=== PATIENT | female | born 1985 | race Caucasian/White ===

== ENCOUNTER 2020-05-21 14:39 | Emergency (ER) | payer OTHER, SELFPAY ==
--- NOTE | 2020-05-21 14:44 | ED.URI ---
HPI - URI/Sore Throat General Stated Complaint: SORE THROAT/WHITE SPOT UNDER TONGUE Time Seen by Provider: 05/21/20 14:44 Source: patient and RN notes reviewed Related Data Home Medications Medication Instructions Recorded Confirmed docosahexaenoic acid 200 mg capsule mg PO DAILY cap 12/23/19 Allergies Allergy/AdvReac Type Severity Reaction Status Date / Time No Known Allergies Allergy Verified 12/23/19 08:51 Review of Systems Review of Systems: Narrative: CONSTITUTIONAL: Denies fever, chills, or sweats. EYES: Denies visual changes, redness, or discharge. ENT: Reports of a sore throat and white spot CARDIOVASCULAR: Denies chest pain, palpitations, or edema. RESPIRATORY: Denies cough or dyspnea. GASTROINTESTINAL: Denies abdominal pain, nausea, vomiting, or diarrhea. GENITOURINARY: Denies dysuria or hematuria. SKIN: Denies rash or itching. MUSCULOSKELETAL: Denies back pain, joint pain, or myalgia. NEUROLOGIC: Denies headache, numbness, or weakness. All other systems reviewed are negative, except as documented in HPI. [facility] Past Medical History Medical History (Updated 12/23/19 @ 09:24 by Betty Martinez MD) Encounter for supervision of normal first in third trimester Endometriosis Migraines endometritis UTI (urinary tract infection) Vaginal delivery x 2 Surgical History Surgical History H/O laparoscopy History of tonsillectomy Family History Family History Mother Coronary stent patent Hypertension Anemia Psoriasis Sibling Gestational diabetes Hypertension Hypothyroidism Psoriasis Grandparent Throat cancer Psoriasis Father Chronic obstructive pulmonary disease Social History Social History Smoking status: Never smoker Alcohol intake: never Substance use: never Spiritual care concerns: No Agree to blood products: Yes Comments At the time of my signature, I reviewed and agree with the nursing past medical, surgical, social, and family history. There is no relevant family history pertinent to the patient complaint. Exam Narrative: Exam Narrative: GENERAL: This is a well-nourished, well-developed patient, in no apparent distress. HEAD: normocephalic, atraumatic. EYES: PERRL. Sclera clear/white. Vision is grossly intact. EARS: External ears normal, auditory canals clear and without drainage, TMs normal without perforation. Hearing grossly intact. NOSE: External nose normal with no obvious nasal discharge, nares without redness, no rhinorrhea. THROAT: Mucous membranes moist, posterior pharynx clear. NECK: Neck supple, non-tender without lymphadenopathy, masses or thyromegaly. CARDIOVASCULAR: Regular rate and rhythm without murmurs, gallops, or rubs. RESPIRATORY: Clear to auscultation. Breath sounds equal bilaterally. No wheezes, rales, or rhonchi. GASTROINTESTINAL: Abdomen soft, non-tender, nondistended. Bowel sounds are active. No hepato-splenomegaly, or palpable masses. No guarding. SKIN: warm, intact with no suspicious lesions or rash, good texture and turgor. NEURO: awake, alert, and oriented to person, place and time. There were no obvious focal neurologic abnormalities. EXTREMITIES: No clubbing, cyanosis, or edema. No joint tenderness, effusion, or edema noted. No calf tenderness. Negative Homans sign bilaterally. BACK: Nontender without deformity or crepitance. No flank tenderness. MDM - URI/Sore Throat MDM Narrative Medical decision making narrative: Reviewed lab results with the patient. She is aware that strep swab was Differential Diagnosis Differential diagnosis: Likely upper respiratory infection, croup, otitis media, sinusitis, viral infection, bronchitis, influenza and pharyngitis Lab Data Attestation: I reviewed the patient's lab results. Critical Care Time
[2020-05-21 14:46] VITALS: BP 111/73; PULSE 80; RESP 20; TEMP 36.6; O2SAT 100
--- NOTE | 2020-05-21 14:55 | ED.DENTAL ---
HPI - Dental/Oral General Chief complaint: Dental/Oral Stated complaint: SORE THROAT/WHITE SPOT UNDER TONGUE Time Seen by Provider: 05/21/20 14:44 Source: patient and RN notes reviewed History of Present Illness HPI Narrative: Patient is a 35-year-old female who presents the urgent care with complaints of a white spot to the back of her tongue . Patient states that she noticed it a couple days ago and her thought it appeared to be getting larger. Patient states that she did recently have Covid and was out of quarantine on [place]. Patient states that she currently has no symptoms with the exception of just a mild nasal congestion. Patient has not done anything for the sore in her mouth. No other acute complaints. No acute distress noted. Patient aware of the plan of care. Some parts of this dictation were generated by voice recognition software and may contain typographical and/or grammatical inaccuracies. Related Data Home Medications Medication Instructions Recorded Confirmed [id number] [id number] [id number] pkg PO 05/21/20 [Daily ] Allergies Allergy/AdvReac Type Severity Reaction Status Date / Time No Known Allergies Allergy Verified 12/23/19 08:51 Review of Systems Review of Systems: Narrative: CONSTITUTIONAL: Denies fever, chills, or sweats. EYES: Denies visual changes, redness, or discharge. ENT: Denies rhinorrhea, congestion, sore throat, or otalgia. Reports of a sore under the tongue to the back of the left side CARDIOVASCULAR: Denies chest pain, palpitations, or edema. RESPIRATORY: Denies cough or dyspnea. GASTROINTESTINAL: Denies abdominal pain, nausea, vomiting, or diarrhea. GENITOURINARY: Denies dysuria or hematuria. SKIN: Denies rash or itching. MUSCULOSKELETAL: Denies back pain, joint pain, or myalgia. NEUROLOGIC: Denies headache, numbness, or weakness. All other systems reviewed are negative, except as documented in HPI. [facility] Past Medical History Medical History (Updated 05/21/20 @ 14:58 by SHUKRI Bermeo) Encounter for supervision of normal first in third trimester Endometriosis Migraines endometritis UTI (urinary tract infection) Vaginal delivery x 2 Surgical History Surgical History H/O laparoscopy History of tonsillectomy Family History Family History Mother Coronary stent patent Hypertension Anemia Psoriasis Sibling Gestational diabetes Hypertension Hypothyroidism Psoriasis Grandparent Throat cancer Psoriasis Father Chronic obstructive pulmonary disease Social History Social History Smoking status: Never smoker Alcohol intake: never Substance use: never Spiritual care concerns: No Agree to blood products: Yes Comments At the time of my signature, I reviewed and agree with the nursing past medical, surgical, social, and family history. There is no relevant family history pertinent to the patient complaint. Exam Narrative: Exam Narrative: GENERAL: This is a well-nourished, well-developed patient, in no apparent distress. HEAD: normocephalic, atraumatic. EYES: PERRL. Sclera clear/white. Vision is grossly intact. EARS: External ears normal NOSE: External nose normal with no obvious nasal discharge, nares without redness, no rhinorrhea. THROAT: Mucous membranes moist, posterior pharynx clear. Pinpoint nearly healed canker sore under the tongue to the posterior left NECK: Neck supple SKIN: warm, intact with no suspicious lesions or rash, good texture and turgor. NEURO: awake, alert, and oriented to person, place and time. There were no obvious focal neurologic abnormalities. EXTREMITIES: No clubbing, cyanosis, or edema. Course Vital Signs Vital signs: Vital Signs Temperature 97.8 F 05/21/20 14:46 Pulse Rate
== END 2020-05-21 15:03 | disposition home or self-care (01) ==
PROVIDERS: Emergency Provider Nurse Practitioner Family
DX: K12.0 Recurrent oral aphthae (principal); N80.9 Endometriosis, unspecified
CPT/HCPCS: 99211; G0463

== ENCOUNTER 2020-07-29 15:50 | Outpatient (NON) | payer OTHER, SELFPAY ==
[2020-07-29 16:05] LABS: Hematocrit 42.9 % (35.0-49.0); Hemoglobin 13.9 g/dL (12.0-15.0); Mean Corpuscular HGB Conc 32.4 g/dL (32.0-36.0); Mean Corpuscular Hemoglobin 29.3 pg (27.0-31.0); Mean Corpuscular Volume 90.3 fL (78.0-102.0); Platelet Count Result 274 K/mm3 (150-420); Red Blood Count 4.75 M/mm3 (4.20-5.40); Red Cell Distribution Width 12.5 % (11.6-14.4); White Blood Count 6.7 K/mm3 (4.8-10.8)
[2020-07-29 16:45] LABS: Alanine Aminotransferase 20 U/L (14-59); Albumin Level 4.1 g/dL (3.4-5.0); Alkaline Phosphatase 66 U/L (46-116); Anion Gap 8 mmol/L (8-16); Aspartate Amino Transferase 13 U/L (15-37); Bilirubin,Total 0.3 mg/dL (0.00-1.00); Blood Urea Nitrogen 11 mg/dL (7-18); Calcium 9.1 mg/dL (8.5-10.1); Carbon Dioxide 30 mmol/L (21-32); Chloride 103 mmol/L (98-108); Cholesterol 169 mg/dL (0-200); Estimated Glomerular Filt Rate > 60; Glucose 85 mg/dL (70-99); HDL Direct 76 mg/dL (40-60); LDL Cholesterol Calculated 84 mg/dL (<130); Osmolality Calculated 290 mOsm/kg (285-295); Potassium 3.7 mmol/L (3.5-5.1); Sodium 141 mmol/L (136-145); Total Protein 7.3 g/dL (6.4-8.2); Triglycerides 43 mg/dL (0-150)
== END 2020-07-29 15:51 ==
PROVIDERS: PCP Family Medicine; Visit Provider Family Medicine
DX: L65.9 Nonscarring hair loss, unspecified (principal)
CPT/HCPCS: 36415; 80053; 80061; 84443; 85027

== ENCOUNTER 2021-05-01 09:06 | Outpatient (CLI) | payer OTHER, SELFPAY ==
--- NOTE | ~2021-05-01 | XR_ITS ---
EXAMINATION: XR foot LT standing 2V EXAM DATE: 05/01/2021 09:37 INDICATION: Chronic pain in left foot . TECHNIQUE: Frontal and lateral projections of the left foot standing. Contralateral foot same date FINDINGS: There are no bony erosions identified. There are no acute left foot fractures or dislocati ons identified. There is no subcutaneous gas. The soft tissue is unremarkable. There are no radio paque foreign bodies. IMPRESSION: 1. Unremarkable XR foot LT standing 2V exam. Reviewed, dictated and finalized at location B. ER REPAIRMAN
--- NOTE | ~2021-05-01 | XR_ITS ---
EXAMINATION: XR foot RT standing 2V EXAM DATE: 05/01/2021 09:37 INDICATION: Chronic pain in right foot. TECHNIQUE: Frontal and lateral projections of the right foot standing. Correlation is made to contra lateral foot same date. FINDINGS: There are no bony erosions identified. There are no acute fractures or dislocations identi fied. There is no subcutaneous gas. The soft tissue is unremarkable. There are no radiopaque fore ign bodies. IMPRESSION: 1. Unremarkable XR foot RT standing 2V exam. Reviewed, dictated and finalized at location B. TRUCTION CONSULTANT
== END 2021-05-01 09:07 | disposition home or self-care (01) ==
LOC: CHSIMG 09:09
PROVIDERS: PCP Family Medicine; Visit Provider Family Medicine
DX: M79.671 Pain in right foot (principal); M79.672 Pain in left foot
CPT/HCPCS: 73620

== ENCOUNTER 2021-05-30 07:46 | Outpatient (CLI) | payer OTHER, SELFPAY ==
[2021-05-30 09:46] LABS: SARS-CoV-2 RNA PCR Positive (Negative)
== END 2021-05-30 07:47 | disposition home or self-care (01) ==
LOC: CHSLAB 07:49
PROVIDERS: PCP Family Medicine; Visit Provider Nurse Practitioner Family
DX: U07.1 COVID-19 (principal)
CPT/HCPCS: C9803; U0003; U0005

== ENCOUNTER 2021-09-26 11:09 | Outpatient (CLI) | payer OTHER, SELFPAY ==
[2021-09-26 12:24] LABS: SARS-CoV-2 RNA PCR Negative (Negative)
== END 2021-09-26 11:10 | disposition home or self-care (01) ==
LOC: CHSLAB 11:10
PROVIDERS: PCP Family Medicine; Visit Provider Family Medicine
DX: Z20.822 Contact with and (suspected) exposure to COVID-19 (principal)
CPT/HCPCS: C9803; U0003; U0005

== ENCOUNTER 2023-04-20 08:00 | Outpatient (CLI) | payer OTHER, SELFPAY ==
[2023-04-20 08:20] LABS: Hematocrit 39.4 % (35.0-49.0); Hemoglobin 12.9 g/dL (12.0-15.0); Mean Corpuscular HGB Conc 32.7 g/dL (32.0-36.0); Mean Corpuscular Volume 91.6 fL (78.0-102.0); Mean Platelet Volume 11.6 fl (9.2-11.8); Platelet Count Result 238 K/mm3 (150-420); Red Cell Distribution Width 12.5 % (11.6-14.4); White Blood Count 5.4 K/mm3 (4.8-10.8)
== END 2023-04-20 08:01 | disposition home or self-care (01) ==
LOC: CHSLAB 08:00
PROVIDERS: PCP Family Medicine; Visit Provider Obstetrics & Gynecology
DX: N92.0 Excessive and frequent menstruation with regular cycle (principal)
CPT/HCPCS: 36415; 85027

== ENCOUNTER 2023-04-22 14:07 | Outpatient (CLI) | payer OTHER, SELFPAY ==
--- NOTE | ~2023-04-22 | US_ITS ---
EXAMINATION: US pelvic complete w TV DATE: 04/22/2023 14:49 INDICATION: Excessive and frequent menstruation Comparison:Ultrasound dated 11/11/2018 TECHNIQUE: Multiple transabdominal and endovaginal sonographic images of the pelvis performed. FINDINGS: The uterus measures 8.3 x 5.3 x 3.9 cm. There is a small uterine fibroid measuring 1 cm. Th e endometrial complex measures 1.8 cm. The right ovary measures 2.3 x 2.1 x 1.8 cm and the left ovary measures 2.4 x 1.7 x 1.6 cm. There is a 1.5 cm left ovarian cyst. There are small follicles in each ovary. Normal doppler signal in both ov jacobo. There is free fluid in the pelvis. There are no abnormal masses seen on either side. IMPRESSION: 1. Thickened endometrium measuring 1.8 cm. 2: Left ovarian cyst measuring 1.5 cm. Reviewed, dictated and finalized at location B. MING MACHINE OPERATOR
== END 2023-04-22 14:08 | disposition home or self-care (01) ==
LOC: CHSIMG 14:09
PROVIDERS: PCP Family Medicine; Visit Provider Obstetrics & Gynecology
DX: N85.2 Hypertrophy of uterus (principal); N92.0 Excessive and frequent menstruation with regular cycle; N83.202 Unspecified ovarian cyst, left side
CPT/HCPCS: 76830; 76856

== ENCOUNTER 2024-01-23 10:30 | Outpatient (CLI) | payer OTHER, SELFPAY ==
--- NOTE | ~2024-01-23 | US_ITS ---
EXAMINATION: US abdomen limited DATE: 01/23/2024 10:50 INDICATION: Cholelithiasis TECHNIQUE: Multiple grayscale and Doppler ultrasound images of the abdomen were obtained. COMPARISON: None FINDINGS: Pancreas is normal. Visualized proximal inferior vena cava is normal. Liver has normal echogenicity a nd contour, with a smooth surface. No liver lesion identified. No intrahepatic biliary duct dilation suspected. Portal venous flow was seen in the hepatopetal, normal direction and has normal Doppler wa veform. There are a few tiny <2 mm nonshadowing echogenic nodules along the dependent and nondependen t gallbladder wall consistent with tiny cholesterol polyps. There is no shadowing cholelithiasis. Th e common bile duct measures 4 mm, which is normal. Sonographic Grover sign was reported as negative b y the consumer educator. IMPRESSION: 1. A few tiny <2 mm non shadowing gallbladder polyps along the dependent and nondependent gallbladder wall. No evident shadowing cholelithiasis. Reviewed, dictated and finalized at location A. IMPRESSION: 1. A few tiny <2 mm non shadowing gallbladder polyps along the dependent and no ndependent gallbladder wall. No evident shadowing cholelithiasis.
== END 2024-01-23 10:31 | disposition home or self-care (01) ==
LOC: CHSIMG 10:32
PROVIDERS: PCP Family Medicine; Visit Provider Family Medicine
DX: K80.50 Calculus of bile duct without cholangitis or cholecystitis without obstruction (principal)
CPT/HCPCS: 76705

== ENCOUNTER 2024-06-26 09:04 | Outpatient (CLI) | payer OTHER, SELFPAY ==
--- OUTSIDE RECORDS SUMMARY | 2024-06-26 09:28 | XMS_ITS | Clinical Summary ---
Author Organization [facility] - [birth year]22 Address [address] [facility] 3rd [place] [address] Phone Care Team Providers Care Dining Room Host Name Role Phone Aldair Hines MD Primary Care Provider [phone] Social History Tobacco Use Types Packs/Day Years Used Date Smoking Tobacco: Never Assessed Comments Unknown Sex and Gender Information Value Date Recorded Sex Assigned at Not on file Legal Sex Female 8:37 AM CDT Gender Identity Not on file Sexual Orientation Not on file Plan of Treatment Health Maintenance Due Date Last Done Comments HEPATITIS B VACCINES (1 of 3 - 19+ 3-dose series) 2006 CERVICAL CANCER SCREENING 2017 INFLUENZA VACCINE (#1) 2023 DTAP/TDAP/TD VACCINES (2 - T d or Tdap) 06/07/2026 06/07/2016 HPV VACCINES Aged Out No longer eligi ble based on patient's age to complete this topic PNEUMOCOCCAL VACCINE 0-64 YEARS Aged Out No longer eligible based on patient's age to complete this topic Care Teams Dining Room Host Relationship Specialty Start Date End Date Aldair Hines MD [address] [place] [address] [phone] PCP - General Family Practice 12/19/15
--- OUTSIDE RECORDS SUMMARY | 2024-06-26 09:30 | XMS_ITS | Clinical Summary ---
Author Organization [facility] Address [address] [place] [address] Care Team Providers Care Divinity Professor Name Role Phone Aldair Hines MD Primary Care Provider [phone] Source Comments [facility],non-owned Affiliates and Associated Physician Practices is amultiple site organization consisting of ambulatory clinics and hospital sitesin [place], [place], [place] and [place]. This disclosure is being madepursuant to the Care Everywhere program and may not contain all information available regarding this patient. Last updated 18.[facility] Allergies Active Allergy Reactions Criticality Noted Date Comments Dairy Enzyme Formula Rhinitis,GI Discomfort Medications * Be aware that medications may not be up to date on this document. Alwaysverify current medications with the patient. Medication Sig Dispensed Refills Start Date End Date Status multivitamin daily tablet Take 1 (one) tablet by mouth daily with food Active sodium fluoride (Luride) 1.1 (0.5 F) MG/ML solution Take 1 mL by mouth once daily Active polyethylene glycol 3350 (Miralax) 17 GM/SCOOP powder Take 17 (seventeen) g by mouth once daily Active Tenapanor HCl (Ibsrela) 50 MG TABSIndications:Co nstipation associated with Irritable Bowel Syndrome Take 50 mg by mouth 2 times daily with morning and evening meal Reasons: Constipation caused by Irritable Bowel Syndrome 60 tablet 11 02/25/2024 Active Additional Information Patient not taking.Reported on 05/06/2024 Active Problems No known active problems Encounters Date Type Department Care Team Description 06/02/2024 Travel 05/06/2024 10:00 AM CARPENTER RAILCAR Office Visit [facility] - [address] [place] [address] Pranav Eid APRN-JACKLYN Irritable bowel syndrome with constipation (Primary Dx); Raynaud's disease without gangrene; Fever, unspecified fever cause; Gas bloat syndrome; Arthralgia of both hands from Last 3 Months Immunizations Name Administration Dates Next Due TDAP (7yrs+) 06/07/2016 Family History Medical History Relation Name Comments COPD - Chronic Obstructive Pulmonary Disease Father Other - Cardiac Mother Relation Name Status Comments Father Mother Social History Tobacco Use Types Packs/Day Years Used Date Smoking Tobacco: Never Smokeless Tobacco: Never Alcohol Use Standard Drinks/Week Comments Not Currently 0 (1 standard drink = 0.6 oz pur e alcohol) Sex and Gender Information Value Date Recorded Sex Assigned at Not on file Gender Identity Not on file Sexual Orientation Not on file Last Filed Vital Signs Vital Sign Reading Time Taken Comments Blood Pressure 121/72 05/06/2024 10:00 AM CARPENTER RAILCAR Pulse 70 02/05/2024 12:37 PM CDT Temperature 36.7 C (98.1 F) 02/05/2024 12:37 PM CDT Respiratory Rate 16 09/30/2017 9:41 AM CDT Oxygen Saturation 99% 02/05/2024 12: 37 PM CDT Inhaled Oxygen Concentration - - Weight 51.6 kg (113 lb 12.8 oz) 024 10:00 AM CARPENTER RAILCAR Height 151.1 cm (4' 11.5 ) 05/06/2024 1 0:00 AM CARPENTER RAILCAR Body Mass Index 22.6 05/06/2024 10:00 AM CARPENTER RAILCAR Plan of Treatment Upcoming Encounters Date Type Department Care Team (Late st Contact Info) Description 09/23/2024 1:30 PM CDT Office Visit [facility] - Rheumatology [address] [place] [address], [facility] [place] [address] Marek Leija MD [address] [place] [address] [place] [address] 01/06/2025 10:00 AM CDT Office Visit [facility] - [address] [place] [address] Pranav Eid, TRIM MACHINE ADJUSTER-ROLLER SHOP UTILITY WORKER [address] [facility] [address] [place] [address] Health Maintenance Due Date Last Done Comments PAP SMEAR 1987 HIV SCREENING 2002 HEPATITIS C SCREENING 05/08/2005 HEPATITIS B VACCINE (1 of 3 - 19+ 3-dose series) 2006 COVID-19 VACCINE (1 - 2023-2 5 season) 2024 INFLUENZA VACCINE (#1) 2024 DEPRESSION SCREENING 05/20/2024 DTAP/TDAP/TD VACCINES (2 - T d or Tdap) 06/07/2026 06/07/2016 ZOSTER VACCINE (1 of 2) 2037 HIB VACCINE Aged Out No longer eligi ble based on patient's age to complete this topic HPV VACCINE Aged Out No longer eligi ble based on patient's age to complete this topic MENINGOCOCCAL (Group B) VACCINE Aged Out No longer eligible based on patient's age to complete this topic MENINGOCOCCAL VACCINE Aged Out No mauricio carlita eligible based on patient's age to complete this topic PNEUMOCOCCAL VACCINE Aged Out No long er eligible based on patient's age to complete this topic Care Teams Divinity Professor Relationship Specialty Start Date End Date Aldair Hines MD [address] [place] [id number] PCP - General Family Medicine 06/07/16
--- OUTSIDE RECORDS SUMMARY | 2024-06-26 09:30 | XMS_ITS | Clinical Summary ---
Author Organization [facility] Address [facility] [place] [address] Care Team Providers Care Capacitor Assembler Name Role Phone None, Provider MD Primary Care Provider Unavaila ble Allergies No known active allergies Medications No known medications Social History Tobacco Use Types Packs/Day Years Used Date Smoking Tobacco: Never Passive Smoke Exposure: Never Smokeless Tobacco: Never Tobacco Cessation:Counseling Given: Not Answered Comments Unknown Sex and Gender Information Value Date Recorded Sex Assigned at Not on file Legal Sex Female 7:38 PM CDT Gender Identity Not on file Sexual Orientation Not on file Last Filed Vital Signs Vital Sign Reading Time Taken Comments Blood Pressure 140/66 01/19/2024 1:56 PM CDT Pulse 70 01/19/2024 1:56 PM CDT Temperature 36.7 C (98 F) 01/19/2024 1:56 PM CDT Respiratory Rate 20 01/19/2024 1:56 PM CDT Oxygen Saturation 99% 01/19/2024 1:56 PM CDT Inhaled Oxygen Concentration - - Weight 56.7 kg (125 lb) 01/19/2024 11:06 AM CDT Height 149.9 cm (4' 11 ) 01/19/2024 11:06 AM CDT Body Mass Index 25.25 01/19/2024 11:06 AM CDT Plan of Treatment Health Maintenance Due Date Last Done Comments Cervical Cancer Screening Pa p Smear (Age 30 to 64) Every 3 Years 1987 Annual Physical 1990 Hepatitis C 2005 Hepatitis B Vaccines (1 of 3 - 19+ 3-dose series) 2006 Cervical Cancer Screening Pa p with HPV Testing (Age 30 to 64) Every 5 Years 2017 Cervical Cancer Screening wi th HPV 2017 COVID-19 Vaccine (3 - 2023-2 5 season) 2024 10/27/2020, 10/06/2020 Influenza Adult (#1) 2024 DTaP, Tdap and Td Vaccines ( 3 - Td or Tdap) 06/01/2029 06/01/2019, 06/07/2016 HPV Vaccines Aged Out No longer eligi ble based on patient's age to complete this topic Meningococcal B Vaccine Aged Out No l onger eligible based on patient's age to complete this topic Meningococcal Vaccine Aged Out No mauricio carlita eligible based on patient's age to complete this topic Pneumococcal Vaccine: Pediatrics (0 to 5 Years) and At-Risk Patients (6 to 64 Years) Aged Out No longer eligible b ased on patient's age to complete this topic RSV Immunizations Under 20 Months Aged Out No longer eligible b ased on patient's age to complete this topic Care Teams Capacitor Assembler Relationship Specialty Start Date End Date None, Provider, MD PCP - General UNKNOWN PHYSICIAN SPECIALTY 01/19/24
--- OUTSIDE RECORDS SUMMARY | 2024-06-26 09:30 | XMS_ITS | Referral Summary ---
Author Organization [facility] Address [address] [place] [address] Care Team Providers Care Tyre Builder Name Role Phone Aldair Hines MD Primary Care Provider [phone] Source Comments [facility]ates and Associated Physician Practices is amultiple site organization consisting of ambulatory clinics and hospital sitesin [place], [place], [place] and [place]. This disclosure is being madepursuant to the Care Everywhere program and may not contain all information available regarding this patient. Last updated 18.[facility] Encounters Date Type Department Care Team Description 06/02/2024 Travel 05/06/2024 10:00 AM NURSE PLASTICS Office Visit [facility] - GI [address] [address] Pranav Eid, LILLY-DIRECTOR OF HOTEL OPERATIONS Irritable bowel syndrome with constipation (Primary Dx); Raynaud's disease without gangrene; Fever, unspecified fever cause; Gas bloat syndrome; Arthralgia of both hands from Last 3 Months Allergies Active Allergy Reactions Criticality Noted Date [...] 05/06/2024 Active Problems No known active problems Immunizations Name Administration Dates Next Due TDAP (7yrs+) 06/07/2016 Social History Tobacco Use Types Packs/Day Years [...] Comments Blood Pressure 121/72 05/06/2024 10:00 AM NURSE PLASTICS Pulse 70 02/05/2024 12:37 PM CDT Temperature 36.7 C (98.1 F) 02/05/2024 12:37 PM CDT Respiratory Rate 16 09/30/2017 9:41 AM CDT Oxygen Saturation 99% 02/05/2024 12: 37 PM CDT Inhaled Oxygen Concentration - - Weight 51.6 kg (113 lb 12.8 oz) 024 10:00 AM NURSE PLASTICS Height 151.1 cm (4' 11.5 ) 05/06/2024 1 0:00 AM NURSE PLASTICS Body Mass Index 22.6 05/06/2024 10:00 AM NURSE PLASTICS Plan of Treatment Upcoming Encounters Date Type Department Care Team (Late st Contact Info) Description 09/23/2024 1:30 PM CDT Office Visit [facility] - Rheumatology [address] [place] [address], [place] [phone] Marek Lieja MD [address] [place] [address] [place] [phone] 01/06/2025 10:00 AM CDT Office Visit [facility] - [address] [place] [address] Pranav Eid APRN-DIRECTOR OF HOTEL OPERATIONS [address] [facility] [address] [place] [address] Care Teams Tyre Builder Relationship Specialty Start Date End Date Aldair Hines MD [facility] [facility] [place] [address] PCP - General Family Medicine 06/07/16
--- OUTSIDE RECORDS SUMMARY | 2024-06-26 09:30 | XMS_ITS | Patient Health Summary ---
Author Organization [facility] Address [address] [place] [address] Care Team Providers Care Cabinet Professional Name Role Phone Aldair Hines MD Primary Care Provider [phone] Note from [facility],non-owned Affiliates and Associated Physician Practices is amultiple site organization consisting of ambulatory clinics and hospital sitesin [place], [place], [place] and [place]. This disclosure is being madepursuant to the Care Everywhere program and may not contain all information available regarding this patient. Last updated 18.[facility] Allergies * Dairy Enzyme Formula(Rhinitis,GI Discomfort) Medications * Be aware that medications may not be up to date on this document. Alwaysverify current medications with the patient. * multivitamin daily tablet Take 1 (one) tablet by mouth daily with food * sodium fluoride (Luride) 1.1 (0.5 F) MG/ML solution Take 1 mL by mouth once daily * polyethylene glycol 3350 (Miralax) 17 GM/SCOOP powder Take 17 (seventeen) g by mouth once daily * Tenapanor HCl (Ibsrela) 50 MG TABS(Started 02/25/2024) Take 50 mg by mouth 2 times daily with morning and evening meal Reasons: Constipation caused by Irritable Bowel Syndrome 11 refills by 02/24/2025 Active Problems No known active problems Immunizations * TDAP (7yrs+)(Given 06/07/2016) Social History Tobacco Use Types Packs/Day Years [...] Comments Blood Pressure 121/72 05/06/2024 10:00 AM DRY CLEANER PRESSER Pulse 70 02/05/2024 12:37 PM CDT Temperature 36.7 C (98.1 F) 02/05/2024 12:37 PM CDT Respiratory Rate 16 09/30/2017 9:41 AM CDT Oxygen Saturation 99% 02/05/2024 12: 37 PM CDT Inhaled Oxygen Concentration - - Weight 51.6 kg (113 lb 12.8 oz) 024 10:00 AM DRY CLEANER PRESSER Height 151.1 cm (4' 11.5 ) 05/06/2024 1 0:00 AM DRY CLEANER PRESSER Body Mass Index 22.6 05/06/2024 10:00 AM DRY CLEANER PRESSER Procedures * HEMOGLOBIN A1C(Performed 02/21/2024) Performed for Right upper quadrant abdominal pain, Nausea and vomiting, unspecified vomiting type, Chronic idiopathic constipation, Gallbladder polyp * TSH REFLEX FREE T4(Performed 02/21/2024) Performed for Right upper quadrant abdominal pain, Nausea and vomiting, unspecified vomiting type, Chronic idiopathic constipation, Gallbladder polyp * NM HEPATOBILIARY W EF(Performed 02/06/2024) Performed for Right upper quadrant abdominal pain, Nausea and vomiting, unspecified vomiting type, Chronic idiopathic constipation, Gallbladder polyp * CULTURE RESPIRATORY UPPER(Performed 09/30/2017) Performed for Acute pharyngitis, unspecified etiology * STREP A SCREEN - POINT OF CARE (AMB) STL(Performed 09/30/2017) Performed for Acute pharyngitis, unspecified etiology Results * HEMOGLOBIN A1C (02/21/2024 8:56 AM CDT) Hemoglobin A1c 5.0 4.8 - 5.6 % [facility] ACCOUNT BILL Comment: Prediabetes: 5.7 - 6.4 Diabetes: >6.4 Glycemic control for adults with diabetes: <7.0 Blood BLOOD SPECIMEN / Unknown 02/21/2024 8:56 AM CDT 02/21/2024 Narrative [facility] ACCOUNT BILL - 02/22/2024 6:13 AM CDT Performed at: 01 - [facility] [address] [id number] Chief Cloth Finishing Range Operator: Alex Bella PhD, Phone: [phone] Pranav Eid APRN-CONCESSIONIST LAB - SANDWICH COUNTER ATTENDANT RY ORDERABLES [facility] ACCOUNT BILL [address] [place] [address] * TSH REFLEX FREE T4 (02/21/2024 8:55 AM CDT) TSH 1.100 0.450 - 4.500 uIU/mL [facility] ACCOUNT BILL Blood BLOOD SPECIMEN / Unknown 02/21/2024 8:55 AM CDT 02/21/2024 Narrative [facility] ACCOUNT BILL - 02/22/2024 10:10 AM CDT Performed at: - [facility] [id number] Chief Cloth Finishing Range Operator: Alex Bella PhD, Phone: [phone] Pranav Eid APRN-CONCESSIONIST LAB - SANDWICH COUNTER ATTENDANT RY ORDERABLES Performing Organization Address City/[facility]/ZIP Co de Phone Number [facility] ACCOUNT BILL [address] [place] [address] * NM Hepatobiliary W Ef (02/06/2024 11:50 AM CDT) Anatomical Region Laterality Modality Abdomen Nuclear Medicine 02/06/2024 11:5 4 AM CDT Impressions 02/06/2024 1:35 PM CDT IMPRESSION: 1. Normal gallbladder function with a calculated GBEF of 60%. 2. No evidence of enterogastric reflux. > Interpreting Provider: Yaniv Pandey DO on 02/06/2024 1:35 PM Narrative 02/06/2024 1:35 PM CDT PROCEDURE: NM HEPATOBILIARY W EF DATE/TIME OF EXAM: 02/06/2024 11:50 AM CLINICAL INFORMATION: None relevant/not provided if blank. 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 HISTORY: 38-year-old with abdominal pain. TECHNIQUE: A dose of 5.43 mCi Tc-99m Choletec was administered intravenously. Dynamic anterior images of the abdomen were obtained for 1 hour. Additional images of the abdomen were obtained at 60 minutes after drinking 8 ounces of Ensure. CCK is not available at this time. FINDINGS: There is normal clearance of the blood pool. Tracer activity is seen in biliary system and common bile duct at 5 minutes. The gallbladder begins to fill at 5 minutes and is well filled by 26 minutes. Bowel activity is noted at 15 minutes. Post fatty meal images demonstrate adequate emptying of the gallbladder. By computer analysis gallbladder ejection fraction is calculated to be 60% which is normal. Procedure Note Yaniv Pandey DO - 02/06/2024 PROCEDURE: NM HEPATOBILIARY W EF DATE/TIME OF EXAM: 02/06/2024 11:50 AM CLINICAL INFORMATION: None relevant/not provided if blank. 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 HISTORY: 38-year-old with abdominal pain. TECHNIQUE: A dose of 5.43 mCi Tc-99m Choletec was administered intravenously. Dynamic anterior images of the abdomen were obtained for1 hour. Additional images of the abdomen were obtained at 60 minutes after drinking 8 ounces of Ensure. CCK is not available at this time. FINDINGS: There is normal clearance of the blood pool. Tracer activityis seen in biliary system and common bile duct at 5 minutes. Thegallbladder begins to fill at 5 minutes and is well filled by 26 minutes. Bowel activity is noted at 15 minutes. Post fatty meal images demonstrate adequate emptying of the gallbladder.By computer analysis gallbladder ejection fraction is calculated to be 60% which is normal. IMPRESSION: 1. Normal gallbladder function with a calculated GBEF of 60%. 2. No evidence of enterogastric reflux. > Interpreting Provider: Yaniv Pandey DO on 02/06/2024 1:35 PM Pranav Eid STRATEGIC PLANNING DIRECTOR-CONCESSIONIST NE ORDERABLES * (ABNORMAL) CULTURE RESPIRATORY UPPER (09/30/2017 9:57 AM CDT) Upper Respiratory Culture Final report(A) [facility] ACCOUNT BILL Result 1 (A) [facility] ACCOUNT BILL Comment: Beta hemolytic Streptococcus, group A Heavy growth Penicillin and ampicillin are drugs of choice for treatment of beta-hemolytic streptococcal infections. Susceptibility testing of penicillins and other beta-lactam agents approved by the FDA for treatment of beta-hemolytic streptococcal infections need not be performed routinely because nonsusceptible isolates are extremely rare in any beta-hemolytic streptococcus and have not been reported for Streptococcus pyogenes (group A). (CLSI 2011) Microbiology ENTIRE THROAT (SURFACE REGION OF NECK) / Unknown 09/30/2017 9:57 AM CDT 09/30/2017 Narrative Resulting Agency Comment [facility] [place] [address] [facility] [id number] Jeronimo IBANEZ LAB - MICROBIOLOG Y ORDERABLES Performing Organization Address City/State/[facility] Co de Phone Number [facility] ACCOUNT BILL [address] [place] [address] * STREP A SCREEN (09/30/2017 9:50 AM CDT) Strep A Rapid POCT Negative Negative Strep A Internal Control Present Lot # [id number] Expiration Date 04 25 2019 Throat ENTIRE THROAT (SURFACE REGION OF NECK) / Unknown 09/30/2017 9:50 AM CDT Jeronimo IBANEZ LAB - POINT OF CA RE ORDERABLES Care Teams Cabinet Professional Relationship Specialty Start Date End Date Aldair Hines MD [address] [place] [id number] PCP - General Family Medicine 06/07/16
--- OUTSIDE RECORDS SUMMARY | 2024-06-26 09:30 | XMS_ITS | Clinical Summary ---
Author Organization [facility] Address [address] [place] [phone] Phone Care Team Providers Care Project Management Analyst Name Role Phone Unavailable Primary Care Provider Unavailabl e Social History Tobacco Use Types Packs/Day Years Used Date Smoking Tobacco: Never Assessed Comments Unknown Sex and Gender Information Value Date Recorded Sex Assigned at Not on file Legal Sex Female 9:32 AM LD TEACHER Gender Identity Not on file Sexual Orientation Not on file Plan of Treatment Health Maintenance Due Date Last Done Comments Hepatitis C Virus (HCV) Screening 1987 Hepatitis B Immunization (1 of 3 - 19+ 3-dose series) 2006 Pap Smear 2008 Cervical Cancer Screening (CCS) 2017 HPV/Cotest 2017 Influenza Immunization (#1) 2024 SARS-COV-2 Immunization ( season) 2024 10/27/2020, 10/06/2020 Respiratory Syncytial Virus (RSV) Immunization (Adult) (1 - 1-dose 75+ series) 2062 DTaP/Tdap/Td Immunization Discontinued 2019, 06/07/2016 TdaP Immunization Completed 06/01/2019, 06/07/2016 Meningococcal Immunization (ACWY) Aged Out No longer eligible based on patient's age to complete this topic Pneumococcal Immunization Combined Aged Out No longer eligible based on patient's age to complete this topic Rotavirus Immunization Aged Out No lo nger eligible based on patient's age to complete this topic
[2024-06-26 09:34] LABS: Basophils Absolute Auto 0.06 K/mm3 (0.00-0.10); Basophils Percent Auto 1.1 % (0.0-1.0); Eosinophils Absolute Auto 0.05 K/mm3 (0.02-0.50); Eosinophils Percent Auto 0.9 % (1.0-6.0); Hematocrit 39.4 % (35.0-49.0); Hemoglobin 12.8 g/dL (12.0-15.0); Immature Granulocyte Absolute 0.02 K/mm3 (0.00-0.00); Immature Granulocyte Percent A 0.4 % (0.0-0.0); Lymphocytes Absolute Auto 1.57 K/mm3 (1.10-4.50); Lymphocytes Percent Auto 28.1 % (18.0-42.0); Mean Corpuscular HGB Conc 32.5 g/dL (32-36); Mean Corpuscular Volume 86.2 fL (78.0-102.0); Mean Platelet Volume 11.6 fl (9.2-11.8); Monocytes Absolute Auto 0.35 K/mm3 (0.10-0.90); Monocytes Percent Auto 6.3 % (2.0-11.0); Neutrophils Absolute Auto 3.54 K/mm3 (1.70-7.20); Neutrophils Percent Auto 63.2 % (50.0-70.0); Platelet Count Result 267 K/mm3 (150-420); Red Blood Count 4.57 M/mm3 (4.20-5.40); Red Cell Distribution Width 13.4 % (11.6-14.4); White Blood Count 5.6 K/mm3 (4.8-10.8)
[2024-06-26 09:48] LABS: Hemoglobin A1C 4.9 % (<5.7)
[2024-06-26 10:18] LABS: Alanine Aminotransferase 17 U/L (14-59); Albumin Level 4.2 g/dL (3.4-5.0); Alkaline Phosphatase 53 U/L (46-116); Anion Gap 9 mmol/L (4-12); Aspartate Amino Transferase 12 U/L (15-37); Bilirubin,Total 0.7 mg/dL (0.00-1.00); Blood Urea Nitrogen 6 mg/dL (7-18); Carbon Dioxide 28 mmol/L (21-32); Chloride 103 mmol/L (98-108); Cholesterol 161 mg/dL (0-200); Estimated Glomerular Filt Rate > 60; Glucose 84 mg/dL (70-99); HDL Direct 81 mg/dL (40-60); LDL Cholesterol Calculated 72 mg/dL (<130); Osmolality Calculated 286 mOsm/kg (285-295); Potassium 3.8 mmol/L (3.5-5.1); Sodium 140 mmol/L (136-145); Total Protein 7.4 g/dL (6.4-8.2); Triglycerides 41 mg/dL (0-150)
[2024-06-26 10:42] LABS: Thyroid Stimulating Hormone Reflex 0.74 u/IU/mL (0.36-3.74)
[2024-06-28 07:49] LABS: FSH 4.1 mIU/mL; LH 1.6 mIU/mL
[2024-06-29 14:59] LABS: ANA Cascade Screen NEGATIVE (NEGATIVE)
[2024-07-01 14:43] LABS: Almond (F20) IgE <0.10 kU/L; Brazil Nut (f18) <0.10 kU/L; Brazil Nut (f18) Class 0; Cashew Nut (F202) IgE <0.10 kU/L; Cashew Nut (F202) IgE Class 0; Codfish (F3) IgE <0.10 kU/L; Codfish (F3) IgE Class 0; Cow's Milk (F2) IgE <0.10 kU/L; Cow's Milk (F2) IgE Class 0; Egg White (F1) IgE <0.10 kU/L; Egg White (F1) IgE Class 0; Hazelnut (F17) IgE <0.10 kU/L; Hazelnut (F17) IgE Class 0; Macadamia Nut (rf345) <0.10 kU/L; Macadamia Nut (rf345) Class 0; Peanut (F13) IgE <0.10 kU/L; Peanut (F13) IgE Class 0; Salmon (F41) IgE <0.10 kU/L; Salmon (F41) IgE Class 0; Scallop (F338) IgE <0.10 kU/L; Scallop (F338) IgE Class 0; Sesame Seed <0.10 kU/L; Shrimp (F24) IgE <0.10 kU/L; Soybean (F14) IgE <0.10 kU/L; Soybean (F14) IgE Class 0; Tuna (F40) <0.10 kU/L; Tuna (F40) Class 0; Walnut (F256) IgE <0.10 kU/L; Walnut (F256) IgE Class 0; Wheat (F4) IgE <0.10 kU/L; Wheat (F4) IgE Class 0
== END 2024-06-26 09:05 | disposition home or self-care (01) ==
LOC: CHSLAB 09:05
PROVIDERS: PCP Nurse Practitioner Family; Visit Provider Nurse Practitioner Family
DX: Z00.00 Encounter for general adult medical examination without abnormal findings (principal); R53.82 Chronic fatigue, unspecified; R50.9 Fever, unspecified; E73.9 Lactose intolerance, unspecified; K59.09 Other constipation
CPT/HCPCS: 36415; 80053; 80061; 82670; 83001; 83002; 83036; 83516; 84443; 85025; 86003; 86038; 86225; 86235

== ENCOUNTER 2024-07-10 16:56 | Outpatient (CLI) | payer OTHER, SELFPAY ==
--- OUTSIDE RECORDS SUMMARY | 2024-07-10 16:58 | XMS_ITS | Clinical Summary ---
Author Organization [facility] Address [facility] [place] [address] Care Team Providers Care Incident Analyst Name Role Phone None, Provider MD Primary [...] age to complete this topic Care Teams Incident Analyst Relationship Specialty Start Date End Date None, Provider, MD PCP - General UNKNOWN PHYSICIAN SPECIALTY 01/19/24
--- OUTSIDE RECORDS SUMMARY | 2024-07-10 16:58 | XMS_ITS | Continuity of Care Document ---
Author Organization [facility] Address [address] [place] [address] Phone Care Team Providers Care Oncology Patient Navigator Name Role Phone Unavailable Unavailable Unavailable Advance Directives Directive Yes / No Effective Date File Name No Information Encounters Encounter Description Practice Location Reason(s) For Visit Diagnoses Date Provider Providers Copied on Encounter [facility], [address] [facility], [place], [place], [id number], [place] tel:[phone] [facility] No Information No Information Referring Provider: PAOLO CHÁVEZ, [address] [place] [address],[place], [address]. tel:[phone] Family History Family Member Type Diagnosis Age At Onset No Information Payers Payer name Insurance type Covered alliance party ID Authoriza yasir(s) [employer] PPO [id number] Social History Type Description Quantity Date Captured Comments Sex Female Smoking Status No Information Chief Complaint And Reason For Visit No Information History Of Present Illness Encounter Date Complaint History Of Prese nt Illness No Information Instructions Date Instruction Additional Infor mation No Information Assessments Type Assessment Date No Information
--- OUTSIDE RECORDS SUMMARY | 2024-07-10 16:58 | XMS_ITS | Clinical Summary ---
Author Organization [facility] Address [address] [facility] 3rd [place] [address] Phone Care Team Providers Care Structural Welder Name Role Phone Aldair Hines MD Primary Care Provider [phone] Social History Tobacco Use Types Packs/Day Years [...] age to complete this topic Care Teams Structural Welder Relationship Specialty Start Date End Date Aldair Hines MD [address] [place] [phone] PCP - General Family Practice 12/19/15
--- OUTSIDE RECORDS SUMMARY | 2024-07-10 16:58 | XMS_ITS | Clinical Summary ---
Author Organization [facility] Address [address] [place] [address] Phone Care Team Providers Care Rat Farmer Name Role Phone Unavailable Primary Care Provider Unavailabl e Social History Tobacco Use Types Packs/Day Years Used Date Smoking Tobacco: Never Assessed Comments Unknown Sex and Gender Information Value Date Recorded Sex Assigned at Not on file Legal Sex Female 9:32 AM URGENT CARE PHYSICIAN Gender Identity Not on file Sexual Orientation [...]
--- OUTSIDE RECORDS SUMMARY | 2024-07-10 16:58 | XMS_ITS | Clinical Summary ---
Author Organization [facility] Address [address] [facility] [place] [address] Care Team Providers Care Pigment Mixer Name Role Phone Aldair Hines MD Primary Care Provider [phone] Source Comments [facility],non-owned Affiliates and Associated Physician Practices is amultiple site organization consisting of ambulatory clinics and hospital sitesin [place], [place], [place] and [place]. This disclosure is being madepursuant to the Care Everywhere program and may not contain all information available regarding this patient. Last updated 18.[facility] Allergies Active Allergy Reactions Criticality Noted Date [...] Team Description 06/02/2024 Travel 05/06/2024 10:00 AM PARTS TECHNICIAN Office Visit [facility] - [address] [place] [address] [place] [address] Pranav Eid APRN-JACKLYN Irritable bowel syndrome with [...] Comments Blood Pressure 121/72 05/06/2024 10:00 AM PARTS TECHNICIAN Pulse 70 02/05/2024 12:37 PM CDT Temperature 36.7 C (98.1 F) 02/05/2024 12:37 PM CDT Respiratory Rate 16 09/30/2017 9:41 AM CDT Oxygen Saturation 99% 02/05/2024 12: 37 PM CDT Inhaled Oxygen Concentration - - Weight 51.6 kg (113 lb 12.8 oz) 024 10:00 AM PARTS TECHNICIAN Height 151.1 cm (4' 11.5 ) 05/06/2024 1 0:00 AM PARTS TECHNICIAN Body Mass Index 22.6 05/06/2024 10:00 AM PARTS TECHNICIAN Plan of Treatment Upcoming Encounters Date Type Department Care Team (Late st Contact Info) Description 09/23/2024 1:30 PM CDT Office Visit [facility] - Rheumatology [address] [place] [address], [facility] [place] [address] Marek Leija MD [address] [place] [address] [place] [address] 01/06/2025 10:00 AM CDT Office Visit [facility] - [address] [place] [address] Pranav Eid, CONSTRUCTION TECHNICIAN-CRIMINAL ANALYST [address] [facility] [address] [place] [address] Health Maintenance Due Date Last [...] age to complete this topic Care Teams Pigment Mixer Relationship Specialty Start Date End Date Aldair Hines MD [address] [place] [address] PCP - General Family Medicine 06/07/16
--- OUTSIDE RECORDS SUMMARY | 2024-07-10 16:58 | XMS_ITS | Patient Health Summary ---
Author Organization [facility] Address [address] [place] [address] Care Team Providers Care Carpenter Assistant Name Role Phone Aldair Hines MD Primary Care Provider [phone] Note from [facility],non-owned Affiliates and Associated Physician Practices is amultiple site organization consisting of ambulatory clinics and hospital sitesin [place], [place], [place] and [place]. This disclosure is being madepursuant to the Care Everywhere program and may not contain all information available regarding this patient. Last updated 18.[facility] Allergies * Dairy Enzyme Formula(Rhinitis,GI Discomfort) [...] Comments Blood Pressure 121/72 05/06/2024 10:00 AM MOP HANDLE ASSEMBLER Pulse 70 02/05/2024 12:37 PM CDT Temperature 36.7 C (98.1 F) 02/05/2024 12:37 PM CDT Respiratory Rate 16 09/30/2017 9:41 AM CDT Oxygen Saturation 99% 02/05/2024 12: 37 PM CDT Inhaled Oxygen Concentration - - Weight 51.6 kg (113 lb 12.8 oz) 024 10:00 AM MOP HANDLE ASSEMBLER Height 151.1 cm (4' 11.5 ) 05/06/2024 1 0:00 AM MOP HANDLE ASSEMBLER Body Mass Index 22.6 05/06/2024 10:00 AM MOP HANDLE ASSEMBLER Procedures * HEMOGLOBIN A1C(Performed 02/21/2024) Performed for [...] AM CDT Performed at: 01 - [facility] [address] [id number] Medical Laboratory Scientist: Alex Bella PhD, Phone: [phone] Pranav Eid APRN-ADMIN ASSISTANT LAB - CEMENTER MACHINE JOINER RY ORDERABLES [facility] ACCOUNT BILL [address] [place] [address] * TSH REFLEX FREE T4 (02/21/2024 8:55 AM CDT) TSH 1.100 0.450 - 4.500 uIU/mL [facility] ACCOUNT BILL Blood BLOOD SPECIMEN / Unknown 02/21/2024 8:55 AM CDT 02/21/2024 Narrative [facility] ACCOUNT BILL - 02/22/2024 10:10 AM CDT Performed at: - [address] [id number] Medical Laboratory Scientist: Alex Bella PhD, Phone: [phone] Pranav Eid APRN-ADMIN ASSISTANT LAB - CEMENTER MACHINE JOINER RY ORDERABLES Performing Organization Address City/[facility]/ZIP Co de Phone Number [facility] ACCOUNT BILL [address] [place] [address] * NM Hepatobiliary W Ef (02/06/2024 11:50 [...] DO on 02/06/2024 1:35 PM Pranav Eid METAL TUBE CUTTER-ADMIN ASSISTANT [place] ORDERABLES * (ABNORMAL) CULTURE RESPIRATORY UPPER (09/30/2017 [...] CDT 09/30/2017 Narrative Resulting Agency Comment [facility] [place] [address] [facility] [id number] Jeronimo IBANEZ LAB - MICROBIOLOG Y ORDERABLES Performing Organization Address City/State/[facility] Co de Phone Number [facility] ACCOUNT BILL [address] [place] [address] * STREP A SCREEN (09/30/2017 9:50 AM CDT) Strep A Rapid POCT Negative Negative Strep A Internal Control Present Lot # [id number] Expiration Date 04 25 2019 Throat ENTIRE THROAT (SURFACE REGION OF NECK) / Unknown 09/30/2017 9:50 AM CDT Jeronimo IBANEZ LAB - POINT OF CA RE ORDERABLES Care Teams Carpenter Assistant Relationship Specialty Start Date End Date Aldair Hines MD [address] [place] [address] PCP - General Family Medicine 06/07/16
--- OUTSIDE RECORDS SUMMARY | 2024-07-10 16:59 | XMS_ITS | Referral Summary ---
Author Organization [facility] Address [address] [facility] [place] [address] Care Team Providers Care Couture Alterations Dressmaker Name Role Phone Aldair Hines MD Primary Care Provider [phone] [facility] Affiliates and Associated Physician Practices is amultiple site organization consisting of ambulatory clinics and hospital sitesin [place], [place], [place] and [place]. This disclosure is being madepursuant to the Care Everywhere program and may not contain all information available regarding this patient. Last updated 18.[facility] Encounters Date Type Department Care Team Description 06/02/2024 Travel 05/06/2024 10:00 AM ELECTRICAL LOGGER Office Visit [facility] - GI [address] [address] Pranav Eid, LILLY-HRIS ADMINISTRATOR Irritable bowel syndrome with constipation (Primary Dx); [...] Comments Blood Pressure 121/72 05/06/2024 10:00 AM ELECTRICAL LOGGER Pulse 70 02/05/2024 12:37 PM CDT Temperature 36.7 C (98.1 F) 02/05/2024 12:37 PM CDT Respiratory Rate 16 09/30/2017 9:41 AM CDT Oxygen Saturation 99% 02/05/2024 12: 37 PM CDT Inhaled Oxygen Concentration - - Weight 51.6 kg (113 lb 12.8 oz) 024 10:00 AM ELECTRICAL LOGGER Height 151.1 cm (4' 11.5 ) 05/06/2024 1 0:00 AM ELECTRICAL LOGGER Body Mass Index 22.6 05/06/2024 10:00 AM ELECTRICAL LOGGER Plan of Treatment Upcoming Encounters Date Type Department Care Team (Late st Contact Info) Description 09/23/2024 1:30 PM CDT Office Visit [facility] - Rheumatology [address] [place] [address], [place] [address] Marek Leija MD [address] [place] [address] [place] [address] 01/06/2025 10:00 AM CDT Office Visit [facility] - [address] [place] [address] Pranav Eid APRN-HRIS ADMINISTRATOR [address] [facility] [address] [place] [address] Care Teams Couture Alterations Dressmaker Relationship Specialty Start Date End Date Aldair Hines MD [facility] [place] [address] PCP - General Family Medicine 06/07/16
[2024-07-10 18:16] LABS: Folic Acid 12.1 ng/mL (8.6->20); Vitamin B12 463 pg/mL (193-986)
[2024-07-12 02:38] LABS: Vitamin D 25 Hydroxy 40 ng/mL (30-100)
== END 2024-07-10 16:57 | disposition home or self-care (01) ==
PROVIDERS: PCP Nurse Practitioner Family; Visit Provider Nurse Practitioner Family
DX: R53.82 Chronic fatigue, unspecified (principal)
CPT/HCPCS: 36415; 82306; 82607; 82746

== ENCOUNTER 2025-03-15 17:04 | Outpatient (CLI) | payer OTHER, SELFPAY ==
--- OUTSIDE RECORDS SUMMARY | 2025-03-15 17:20 | XMS_ITS | Clinical Summary ---
Author Organization [facility] Address [address] [place] [address] Care Team Providers Care Brush Machine Setter Name Role Phone Aldair Hines MD Primary Care Provider [phone] Source Comments [facility],non-owned Affiliates and Associated Physician Practices is amultiple site organization consisting of ambulatory clinics and hospital sitesin [place], [place], [place] and [place]. This disclosure is being madepursuant to the Care Everywhere program and may not contain all information available regarding this patient. Last updated 18.[facility] Allergies Active Allergy Reactions Criticality Noted Date Comments Dairy Enzyme Formula Rhinitis,GI Discomfort Medications * Be aware that medications may not be up to date on this document. Alwaysverify current medications with the patient. multivitamin daily tablet Take 1 (one) tablet by mouth daily with food Active sodium fluoride (Luride) 1.1 (0.5 F) MG/ML solution Take 1 mL by mouth once daily Active Other Active Cyanocobalamin (B-12 COMPLIANCE INJECTION IJ) Active polyethylene glycol 3350 (Miralax) 17 GM/SCOOP powderIndicatio ns:Constipation Take 17 (seventeen) g by mouth once daily Reasons: Constipation 578 g 11 5 Active Active Problems No known active problems Encounters Date Type Department Care Team Description 01/06/2025 10:00 AM CDT Office Visit [facility] [address] [place] [address] Ragini, Pranav H, BLENDING OPERATOR-GROUP PRESIDENT Irritable bowel syndrome with constipation (Primary Dx); Dyssynergic constipation; Gas bloat syndrome 01/06/2025 Travel from Last 3 Months Immunizations Immunization Administration Dates Next Due TDAP (7yrs+) 06/07/2016 Family History Medical History Relation Name Comments COPD - Chronic Obstructive Pulmonary Disease Father Other - Cardiac Mother Relation Name Status Comments Father Mother Social History Tobacco Use Types Packs/Day Years Used Date Smoking Tobacco: Never Smokeless Tobacco: Never Alcohol Use Standard Drinks/Week Comments Not Currently 0 (1 standard drink = 0.6 oz pur e alcohol) Comments No Sex and Gender Information Value Date Recorded Sex Assigned at Not on file Legal Sex Female 3:32 PM PHP WEBSITE DEVELOPER Gender Identity Not on file Sexual Orientation Not on file Last Filed Vital Signs Vital Sign Reading Time Taken Comments Blood Pressure 132/76 01/06/2025 9:56 AM CDT Pulse 70 02/05/2024 12:37 PM CDT Temperature 36.7 C (98.1 F) 02/05/2024 12:37 PM CDT Respiratory Rate 16 09/30/2017 9:41 AM CDT Oxygen Saturation 99% 02/05/2024 12:37 PM CDT Inhaled Oxygen Concentration - - Weight 52.7 kg (116 lb 3.2 oz) 01/06/2025 9:56 A M CDT Height 151.1 cm (4' 11.5) 01/06/2025 9:56 AM CD T Body Mass Index 23.08 01/06/2025 9:56 AM CDT Plan of Treatment Health Maintenance Due Date Last Done Comments HIV SCREENING 2002 HEPATITIS C SCREENING 05/08/2005 HEPATITIS B VACCINE (1 of 3 - 19+ 3-dose series) 2006 PAP SMEAR 2008 HPV VACCINE (1 - 3-dose SCDM series) 2014 DEPRESSION SCREENING 05/20/2024 COVID-19 VACCINE (3 - 2024-2 6 season) 2025 10/27/2020, 10/06/2020 INFLUENZA VACCINE (#1) 2025 03/28/2020 DTAP/TDAP/TD VACCINES (2 - T d or Tdap) 06/07/2026 06/07/2016 ZOSTER VACCINE (1 of 2) 2037 HIB VACCINE Aged Out No longer eligi ble based on patient's age to complete this topic MENINGOCOCCAL (Group B) VACCINE SHARED DECISION-MAKING Aged Out No longer eligible based on patient's age to complete this topic MENINGOCOCCAL GROUPS A/C/Y/W VACCINE Aged Out No longer eligible b ased on patient's age to complete this topic PNEUMOCOCCAL VACCINE Aged Out No long er eligible based on patient's age to complete this topic Insurance [facility] Care Teams Brush Machine Setter Relationship Specialty Start Date End Date Aldair Hines MD [employer] [place] [address] PCP - General Family Medicine 06/07/16
--- OUTSIDE RECORDS SUMMARY | 2025-03-15 17:20 | XMS_ITS | Clinical Summary ---
Author Organization [facility] - [facility] Address [address] [place] [address] Phone Care Team Providers Care Ear Flap Binder Name Role Phone Aldair Hines MD Primary Care Provider [phone] Social History Tobacco Use Types Packs/Day Years [...] (1 of 3 - 19+ 3-dose series) 04/20 HPV/Cotest (21-29) 2008 HPV VACCINES (1 - 3-dose SCDM series) 2014 CERVICAL CANCER SCREENING 2017 HPV/Cotest (30-65) 2017 PAP SMEAR 2017 INFLUENZA VACCINE (#1) 2024 DTAP/TDAP/TD VACCINES (2 - Td or Tdap) 06/07/2026 Care Teams Ear Flap Binder Relationship Specialty Start Date End Date Aldair Hines MD [address] [place] [id number] PCP - General Family Practice 12/19/15
--- OUTSIDE RECORDS SUMMARY | 2025-03-15 17:20 | XMS_ITS | Clinical Summary ---
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
--- OUTSIDE RECORDS SUMMARY | 2025-03-15 17:20 | XMS_ITS | Clinical Summary ---
Author Organization [facility] Address [facility] [place] [address] Care Team Providers Care Management Nurse Rn Name Role Phone None, Provider MD Primary [...] 11:06 AM CDT Height 149.9 cm (4' 11) 01/19/2024 11:06 AM CDT Body Mass Index 25.25 01/19/2024 11:06 AM CDT Plan of Treatment Health Maintenance Due Date Last Done Comments Cervical Cancer Screening Pa p Smear (Age 30 to 64) Every 3 Years 1987 Annual Physical 1990 Hepatitis C 2005 Hepatitis B Vaccines (1 of 3 - 19+ 3-dose series) 2006 HPV Vaccines (1 - 3-dose SCD M series) 2014 Cervical Cancer Screening Pa p with HPV Testing (Age 30 to 64) Every 5 Years 2017 Cervical Cancer Screening wi th HPV 2017 COVID-19 Vaccine (3 - 2024-2 6 season) 2025 10/27/2020, 10/06/2020 Influenza Adult (#1) 2025 DTaP, Tdap and Td Vaccines ( 3 - Td or Tdap) 06/01/2029 06/01/2019, 06/07/2016 Hepatitis A Vaccines Aged Out No long er eligible based on patient's age to complete this topic Meningococcal B Vaccine Aged Out No l onger eligible based on patient's age to complete this topic Meningococcal Vaccine Aged Out No mauricio carlita eligible based on patient's age to complete this topic Pneumococcal Vaccine: Pediatrics (0 to 5 Years) and At-Risk Patients (6 to 49 Years) Aged Out No longer eligible b ased on patient's age to complete this topic RSV Immunizations Under 20 Months Aged Out No longer eligible b ased on patient's age to complete this topic Care Teams Management Nurse Rn Relationship Specialty Start Date End Date None, Provider, MD PCP - General UNKNOWN PHYSICIAN SPECIALTY 01/19/24
[2025-03-15 19:11] LABS: Vitamin B12 877.0 pg/mL (239-931)
== END 2025-03-15 17:05 | disposition home or self-care (01) ==
PROVIDERS: PCP Nurse Practitioner Family; Visit Provider Nurse Practitioner Family
DX: R53.82 Chronic fatigue, unspecified (principal)
CPT/HCPCS: 36415; 82607